=== PATIENT | female | born 1980 | race Caucasian/White ===

== ENCOUNTER 2023-09-05 10:07 | Outpatient (CLI) | payer BC, SELFPAY ==
[2023-09-05 14:47] LABS: Chlamydia DNA Amplified* NOT DETECTED (No Detected); GC DNA Amplified* NOT DETECTED (No Detected)
== END 2023-09-05 10:08 | disposition home or self-care (01) ==
LOC: LKVREF 10:08
PROVIDERS: PCP Nurse Practitioner Family; Visit Provider Nurse Practitioner Family
DX: Z11.3 Encounter for screening for infections with a predominantly sexual mode of transmission (principal)
CPT/HCPCS: 87491; 87591